=== PATIENT | female | born 1990 | race Caucasian/White ===

== ENCOUNTER 2025-09-15 08:29 | Outpatient (REF) | payer OTHER, SELFPAY ==
--- OUTSIDE RECORDS SUMMARY | 2025-09-09 23:59 | XMS_ITS | Continuity of Care Document ---
Author Organization [facility] Address [address] [place] [address]- Care Team Providers Care Rubber Curer Name Role Phone Agustin Hernandez MD Primary Care Phys[id number] Date(s): 09/02/25 - 09/09/25 [facility] [address] [address]- Encounter Diagnosis Generalized anxiety disorder(Discharge Diagnosis) - 09/02/25 Depression, major, recurrent(Discharge Diagnosis) - 09/02/25 Vitamin D deficiency(Discharge Diagnosis) - 09/02/25 Attending Physician: Agustin Hernandez MD Encounter Type: Office Visit Allergies, Adverse Reactions, Alerts Substance Criticality Severity Reaction Reaction Severity Status Flagyl numbness hands and feet Active Ceclor rash Active Immunizations Given and Recorded Vaccine Date Status Refusal Reason tetanus/diphtheria/pertussis, acel(Tdap) 1 06/08/25 Given tetanus/diphtheria/pertussis, acel(Tdap) 07/18/15 Recorded influenza virus vaccine, inactivated 2 08/28/22 Gi birgit influenza virus vaccine, inactivated 10/01/21 Daniel rded influenza virus vaccine, inactivated 3 01/08/18 Re corded influenza virus vaccine, inactivated 4 09/20/16 Gi birgit SARS-CoV-2 (COVID-19) mRNA-1273 vaccine 12/15/20 R ecorded SARS-CoV-2 (COVID-19) mRNA-1273 vaccine 11/17/20 R ecorded Influenza Virus Vaccine (oldterm) 09/02/19 Recorde d 1Result Comment: [facility]: [id number] 2Result Comment: [facility] [id number] 3Result Comment: [01/09/2018] at [facility]. 4Result Comment: [09/20/2016] seqirus Medications duloxetine 60 mg oral enteric coated capsule 0 Refills, Maintenance, 06/08/25 7:48:00 AM EDT, Partial fill upon patient request if the prescription is for a schedule II opioid drug. Start Date: 06/08/25 Status: Ordered Medication Dispense Status: Completed Total Allowed Fills: 1 Fills Dispensed: 0 hydrOXYzine pamoate 25 mg oral capsule 1 capsule = 25 mg, By Mouth, 3 times a day, PRN as needed for anxiety, # 40 capsule, 0 Refills, Maintenance, 09/08/25 8:48:00 PM EDT, Capsule, [facility]/pharmacy #[id number], Partial fill upon patient request ifthe prescription is for a schedule II opioid drug., 150, cm, 09/08/25 16:55:00 EDT, Height, 52, kg,09/08/25 16:55:00 EDT, Dry Weight Start Date: 09/08/25 Status: Ordered Medication Dispense Status: Completed Quantity: 40.0 Unit: capsule Total Allowed Fills: 1 Fills Dispensed: 0 infliximab 100 mg intravenous powder for injection = 5 mg/kg, IV Infusion, Every 8 Weeks, Weight 51.5 kg. Total dosage is 113 mg. She is being set up for home infusions. Not due until 01/31/25, # 1 kit, 5 Refills, Maintenance, 12/11/24 4:09:00 PM EST, Partial fill upon patient request if the prescription is for a schedule II opioid drug., 150, cm, 10/31/24 9:31:00 EST, Height, 51.5, kg, 12/06/24 8:37:00 EST, Dry Weight Start Date: 12/11/24 Status: Ordered Medication Dispense Status: Completed Quantity: 1.0 Unit: kit Total Allowed Fills: 6 Fills Dispensed: 0 LORazepam 0.5 mg oral tablet 1 tablet = 0.5 mg, By Mouth, 2 times a day, PRN as needed for anxiety, for 7 days, use sparingly for severe anxiety, do not drive after taking this meds, # 14 tablet, 1 Refills, Acute 09/16/25 11:16:00 AM EDT, 09/02/25 11:16:00 AM EDT, Tablet, [facility]/pharmacy #[id number], Partial fill upon patient request if the prescription is for a schedule II opioid drug., 150, cm, 09/02/25 10:16:00 EDT, Height, 53.9, kg, 09/02/25 10:16:00 EDT, Dry Weight Start Date: 09/02/25 Stop Date: 09/16/25 Status: Ordered Medication Dispense Status: Completed Quantity: 14.0 Unit: tablet Total Allowed Fills: 2 Fills Dispensed: 0 lurasidone 60 mg oral tablet 30 each, 0 Refill(s), TAKE 1 TABLET BY MOUTH EVERY DAY AT DINNER FOR 30 DAYS, 0 Refills, 10/31/24 9:37:00 AM EST, Partial fill upon patient request if the prescription is for a schedule II opioid drug. Start Date: 10/31/24 Status: Ordered Medication Dispense Status: Completed Total Allowed Fills: 1 Fills Dispensed: 0 methylphenidate 36 mg oral tablet, extended release 1 tablet = 36 mg, By Mouth, Daily in AM, 0 Refills, Maintenance, 08/28/22 9:10:00 AM EDT, Partial fill upon patient request if the prescription is for a schedule II opioid drug. Start Date: 08/28/22 Status: Ordered Medication Dispense Status: Completed Total Allowed Fills: 1 Fills Dispensed: 0 PEG-3350 with Electrolytes Lemon-Iroquois (Eqv-NuLYTELY) oral powder for reconstitution 240 mL, By Mouth, Every 10 minutes, Stay on clear liquid diet ALL DAY the day BEFORE the procedure.Drink half the dose the evening before, and the other half early in the morning on the day of the procedure., # 4,000 mL, 0 Refills, Maintenance, 06/23/25 9:19:00 AM EDT, REC Powder, [facility]/pharmacy #[id number], Partial fill upon patient request if the prescription is for a schedule II opioid drug., 240 mL ByMouth Every 10 minutes,Instr:Stay on clear liquid diet ALL DAY the day BEFORE the procedure. Drink half the dose the evening before, and the other half early in the morning on the day of the procedure., 150, cm, 06/23/25 9:01:00 EDT, Height, 51.5, kg, 12/06/24 8:37:00 EST, Dry Weight Start Date: 06/23/25 Status: Ordered Medication Dispense Status: Completed Quantity: 4000.0 Unit: mL Total Allowed Fills: 1 Fills Dispensed: 0 Multivitamin Tablet 0 Refills, Maintenance, 06/23/25 9:03:00 AM EDT, Partial fill upon patient request if the prescription is for a schedule II opioid drug. Start Date: 06/23/25 Status: Ordered Medication Dispense Status: Completed Total Allowed Fills: 1 Fills Dispensed: 0 traZODone 100 mg oral tablet 100 mg, 1, tablet, By Mouth, Daily at bedtime, Refills 0, Maintenance, 03/24/23 1:41:00 PM EDT, Partial fill upon patient request if the prescription is for a schedule II opioid drug. Start Date: 03/24/23 Status: Ordered Medication Dispense Status: Completed Total Allowed Fills: 1 Fills Dispensed: 0 Vitamin B12 Methylcobalamin 1 mg oral tablet, disintegrating 2 tablet = 2 mg, Sublingual, Daily, # 60 tablet, 2 Refills, Maintenance, 06/27/24 4:50:00 PM EDT, [facility]/pharmacy #[id number], Partial fill upon patient request if the prescription is for a schedule II opioid drug., 150, cm, 03/24/24 8:48:00 EDT, Height, 45.9, kg, 05/12/23 8:33:00 EDT, Dry Weight Start Date: 06/27/24 Stop Date: 09/25/24 Status: Ordered Medication Dispense Status: Completed Quantity: 60.0 Unit: tablet Total Allowed Fills: 3 Fills Dispensed: 0 Mental Status Mental Status Assessment Assessment Assessment Component Result Effecti ve Date Patient Health Questionnaire 9 item (PHQ-9) total score [Reported] 19 09/02/25 Mental Status Assessment Assessment Assessment Component Result Effecti ve Date Patient Health Questionnaire 2 item (PHQ-2) total score [Reported] 4 09/02/25 Problem List Condition Confirmation Course Effective Dates Status Health St atus Informant Acute pharyngitis Confirmed Active Acute upper respiratory infection Confirmed Active Anemia Confirmed Active ASCUS of cervix with negative high risk HPV Confirmed Active Bipolar disorder Confirmed Active Crohn's disease Confirmed Active Depression Confirmed Active Fatigue Confirmed Active Generalized anxiety disorder Confirmed Active Right kidney stone Confirmed Active Macrocytosis Confirmed Active Depression, major, recurrent Confirmed Active Encounter for preventive health examination Confirmed Active Annual physical exam Confirmed Active Polyuria Confirmed Active Raynaud disease Confirmed Active Genital ulcer, female Confirmed Active Vitamin D deficiency Confirmed Active Diagnosis Diagnosis Type Effective Dates Health Status Clinical Service Informant Generalized anxiety disorder Discharge Diagnosis 09/02/25 Depression, major, recurrent Discharge Diagnosis 09/02/25 Vitamin D deficiency Discharge Diagnosis 09/02/25 Vital Signs Most recent to oldest [Reference Range]: 1 Height 150 cm (09/02/25 10:16 AM) Weight 53.9 kg (09/02/25 10:16 AM) Oxygen Saturation [94-100 %] 98 % (09/02/25 10:16 AM) Pulse Rate [55-90 bpm] 103 bpm *H* (09/02/25 10:16 AM) Body Mass Index [18.5-24.99 kg/m2] 23.96 kg/m2 (09/02/25 10:16 AM) Blood Pressure [90-138/55-84 mm Hg] 146/ 92mm Hg *H* (09/02/25 10:16 AM) Mode of Delivery (Oxygen) Room air (09/02/25 10:16 AM) Blood pressure sites Arm, right (09/02/25 10:16 AM) Dry Weight 53.9 kg (09/02/25 10:16 AM) Note * Claudia Olvera: PERFORM Event Display: Patient Education/Instruction Authored Date: Ambulatory Adult Visit Summary [facility] [address] [address] Name: SAI SMITH : 1990?? Visit: 09/02/2025 10:11?? Ambulatory Visit Instructions ?? Your Care Team Primary Care Provider Agustin Hernandez MD? This Visit Provider Agustin Hernandez MD Vitals Signs Pulse Rate:??103 bpm??High Height: 150 cm Systolic Blood Pressure:??146 mm Hg??High Weight: 53.9 kg Diastolic Blood Pressure:??92 mm Hg??High Body Mass Index: 23.96 kg/m2 Oxygen Saturation: 98 % Body surface area: 1.5 What to do next Scheduled Follow-Up Appointments Sunday2025 9:30 AM EST ?? Type: SN - Endoscopy Where: [facility] Endoscopy & Special Procedures Status: Pending Future Orders HIV Ab-Ag 4th Generation - Routine, Once, 06/08/25 8:14:00 EDT, Single or Recurring Future Order, [facility], Blood?? Comprehensive Metabolic Panel - Routine, Once, 06/08/25 8:20:00 EDT, Single or Recurring Future Order, [facility], Blood?? Lipid Panel - Routine, Once, 06/08/25 8:20:00 EDT, Single or Recurring Future Order, [facility], Blood?? Thyroid Panel - Routine, Once, 06/08/25 8:20:00 EDT, Single or Recurring Future Order, [facility], Blood?? Vitamin D 25 Hydroxy Level - Routine, Once, 06/08/25 8:20:00 EDT, Single or Recurring Future Order,[facility], Blood?? CBC w/ Differential - Routine, Once, 06/08/25 8:20:00 EDT, Single or Recurring Future Order, [facility], Blood?? Vitamin B12 Level (B12 Vitamin Level) - Routine, Once, 06/08/25 8:21:00 EDT, Single or Recurring Future Order, [facility], Blood?? Folate Level - Routine, Once, 06/08/25 8:21:00 EDT, Single or Recurring Future Order, [facility], Blood?? Iron + Iron Binding Capacity - Routine, Once, 06/08/25 8:21:00 EDT, Single or Recurring Future Order, [facility], Blood?? Ferritin - Routine, Once, 06/08/25 8:21:00 EDT, Single or Recurring Future Order, [facility], Blood?? CBC - Routine, Once, 06/10/25 19:35:00 EDT, Future Order, [facility], Blood?? Comprehensive Metabolic Panel - Routine, Once, 06/10/25 19:35:00 EDT, Future Order, [facility], Blood?? Vitamin D 25 Hydroxy Level - Routine, Once, 06/10/25 19:35:00 EDT, Future Order, [facility], Blood?? Quantiferon TB Gold Plus - Routine, Once, 06/10/25 19:35:00 EDT, Future Order, [facility], Blood?? Ferritin - Routine, Once, 06/10/25 19:35:00 EDT, Future Order, [facility], Blood?? C Reactive Protein (CRP) - Routine, Once, 06/10/25 19:35:00 EDT, Future Order, [facility], Blood?? Calprotectin Fecal - Routine, Once, 06/10/25 19:35:00 EDT, [facility], Stool?? Quantiferon TB Gold Plus - Routine, Once, 06/23/25 9:15:00 EDT, Future Order, [facility], Blood?? Infliximab Conc and Antibody - Routine, Once, 06/23/25 9:20:00 EDT, Future Order, [facility], Blood?? Calprotectin Fecal - Routine, Once, 06/23/25 9:23:00 EDT, [facility], Stool?? Medications The list below reflects the information in our records and provided by you today along with any changes made during this visit. Please continue your medications until treatment is completed or stopped by your provider. If this is different from the information you have or there are other questions,please contact the prescribing provider. What How Much When Instructions Unchanged Duloxetine (duloxetine 60 mg oral enteric coated capsule) Unchanged Infliximab (infliximab 100 mg intravenous powder for injection) 5 Milligrams/Kilogram Intravenous Infusion Every 8 Weeks Special Instructions: Weight 51.5 kg. Total dosage is 113 mg. She is being set up for home infusions. Not due until Ordering Physician: Jace Rios MD ?? Unchanged lurasidone (lurasidone 60 mg oral tablet) Special Instructions: 30 each, 0 Refill(s), TAKE 1 TABLET BY MOUTH EVERY DAY AT DINNER FOR 30 DAYS ?? Unchanged methylcobalamin (Vitamin B12 Methylcobalamin 1 mg oral tablet, disintegrating) 2 tab(s) Sublingual Daily Duration: 30 Days Ordering Physician: Jace Riso MD Unchanged Methylphenidate (methylphenidate 36 mg oral tablet, extended release) 1 tab(s) Oral Daily in the morning Unchanged Multivitamin, ( Multivitamin Tablet) Unchanged PEG Electrolyte Solution (PEG-3350 with Electrolytes Lemon-Iroquois (Eqv- NuLYTELY) oral powder for reconstitution) 240 Milliliter Oral Every 10 minutes Special Instructions: Stay on clear liquid diet ALL DAY the day BEFORE the procedure. Drink half the dose the evening before, and the other half early in the morning on the day of the procedure. Ordering Physician: Jace Rios MD ?? Unchanged Trazodone (traZODone 100 mg oral tablet) 1 tab(s) Oral Daily at Bedtime Medications and Immunizations Administered Medications Given During Visit No medications given during this visit.?? Allergies (NKA means No Known Allergies) Ceclor??rash Flagyl??numbness hands and feet Common Emergency Awareness Tips IS IT A STROKE? Act FAST and Check for these signs: FACE Does the face look uneven? ARM Does one arm drift down? SPEECH Does their speech sound strange? TIME Call at any sign of stroke ?? Heart Attack Signs Chest discomfort: Most heart attacks involve discomfort in the center of the chest and lasts more than a few minutes, or goes away and comes back. It can feel like uncomfortable pressure, squeezing, fullness or pain. Discomfort in upper body: Symptoms can include pain or discomfort in one or both arms, back, neck, jaw or stomach. Shortness of breath: With or without discomfort. Other signs: Breaking out in a cold sweat, nausea, or lightheaded. Remember, MINUTES DO MATTER. If you experience any of these heart attack warning signs, call to get immediate medical attention! ?? Smoking can increase your chances of developing chronic health problems and can cause harmful effects to other family members in your house. If you smoke, you are strongly encouraged to quit. Please call [facility] Link at [phone] or [phone] ([phone]) or log in to [email or web address] for referrals to smoking cessation programs. ?? The National Suicide Prevention Hotline is available 11/06 if you or someone you know needs to find a reason to keep living. By calling 3-120-893-talk (3950) you'll be connected to a skilled, trained counselor at a crisis center in your area. [facility] Health Portal You can view and manage your care through the patient portal or by using a health care dex of your choosing. [employer] is a website that allows you to securely view your medical information including your hospital discharge summary, office visit summaries, medications and follow-up visits. You can also request appointments, renew medications, and request access to your medical information using a health care dex of your choosing, or just ask a question. You can enroll at [email or web address] or register during your next office visit. [facility], in keeping with [facility] guidance, no longer requires face masks for staff, patientsor visitors in most situations. Similiar to time spent indoors at other locations, there is the chance that you were exposed to repiratory viruses during your time with us (such as flu or COVID-19). If you develop symptoms concerning for a viral respiratory infection, please seek testing (and treatment if indicated) from your medical provider or home test kit. ?? Disclaimer: The information provided is of a general nature and is intended to be used in conjunction with the recommendations and advice of your health care practitioner. Every effort has been made to ensure that the information provided is accurate and complete at the time it is provided to you however, as your needs change, or, as new information becomes available, different or additional instructions may be required. ?? If you have questions, please consult with your primary care provider or pharmacist, as appropriate. This information is not intended to serve as substitution for assessment and evaluation by a qualified health care provider. If you do not have a primary care provider, you may find a [facility] provider by calling [facility] Link at [phone]. Patient Care team information Care Team Personnel Name: Agustin Hernandez MD Position: [facility] Physician - Primary Care Member Role: PCP Address: [address] [place] [address]- Telecom: Name: Paola Martins RN Position: [facility] RN Member Role: Primary Care Nurse Name: Nicolette Marks MA Position: [facility] Staff Member Role: Primary Care Nurse Name: Vilma Wang MA Position: [facility] Staff Member Role: Primary Care Nurse Care Team Related Persons Name: RACHTHERESA DOTY Name: LUIS THERESA Name: GREGORIO GOMEZ Insurance Providers Guarantor name: SAI SMITH [facility] Plan Information #: 1 Payer: [facility] PPO Payer Identifier: MICHELLE Member Number: [id number] Group Number: [id number] Subscriber Identifier: NA Relationship to Subscriber: self Coverage Type: NA Coverage Verification Date: NA Telecom: Address:
--- NOTE | 2025-09-15 08:35 | ECG_ITS ---
Test Reason : CHECK QT Blood Pressure : */* mmHG Vent. Rate : 77 BPM Atrial Rate : 77 BPM P-R Int : 116 ms QRS Dur : 92 ms QT Int : 374 ms P-R-T Axes : 51 41 47 degrees QTcB Int : 423 ms Normal sinus rhythm Normal ECG No previous ECGs available Referred By: Cherelle Davila Electronically Signed By: IBIS CORDERO
[2025-09-15 08:53] LABS: MANUAL DIFF FLAG NO
[2025-09-15 09:14] LABS: Hematocrit 42.5 % (37.0-47.0); Hemoglobin 14.7 g/dl (12.0-16.0); Imm Gran Abs Auto 0.02 X10*3/uL (0.00-0.03); Imm Gran Pct Auto 0.3 % (0.0-0.4); Lymphocytes Absolute Auto 1.1 X10*3/uL (1.2-4.9); Mean Corpuscular HGB Conc 34.6 g/dl (31.0-35.0); Mean Corpuscular Hemoglobin 32.3 pg (27.0-33.0); Mean Corpuscular Volume 93.4 fL (80.0-98.0); NRBC Abs Auto 0.000 X10*3/uL (0.0-0.012); NRBC Pct Auto 0.0 /100WBC (0.0-0.2); Platelet Count 296 X10*3/uL (160-400); Red Blood Count 4.55 X10*6/uL (4.20-5.50); White Blood Count 6.2 X10*3/uL (4.8-10.8)
--- OUTSIDE RECORDS SUMMARY | 2025-09-15 09:14 | XMS_ITS | Clinical Summary ---
Author Organization [employer] [facility] lin Address [address] [place] [address] Care Team Providers Care Last Code Striper Name Role Phone Unavailable Primary Care Provider Unavailabl e Allergies Active Allergy Reactions Criticality Noted Date Comments Cefaclor Rash Low 05/23/2023 Metronidazole 05/23/2023 Medications traZODone (DESYREL) 100 MG tablet Take 100 mg by mouth daily 03/24/2023 Active methylphenidate HCl (CONCERTA) 36 MG CR tablet Take 36 mg by mouth daily 08/28/2022 Active methylphenidate HCl (RITALIN) 10 MG tablet Take 36 mg by mouth. 08/28/2022 Active HYDROcodone-acet aminophen (XODOL) 5-300 mg tablet Take 1 tablet by mouth. 10/04/2023 Active Social History Tobacco Use Types Packs/Day Years Used Date Smoking Tobacco: Never Assessed Comments No Sex and Gender Information Value Date Recorded Sex Assigned at Not on file Legal Sex Female 9:38 AM EDT Gender Identity Not on file Sexual Orientation Not on file Last Filed Vital Signs Vital Sign Reading Time Taken Comments Blood Pressure 105/70 10/26/2023 11:20 AM EST Pulse 74 10/26/2023 11:20 AM EST Temperature 36.7 C (98 F) 10/26/2023 11:20 AM EST Respiratory Rate 16 10/26/2023 11:20 AM EST Oxygen Saturation - - Inhaled Oxygen Concentration - - Weight 49 kg (108 lb) 10/26/2023 9:23 AM EST Height 149.9 cm (4' 11 ) 06/18/2023 1:23 PM PDT Body Mass Index 21.81 06/18/2023 1:23 PM PDT Plan of Treatment Health Maintenance Due Date Last Done Comments Depression: Screening Annual ly using PHQ-2/9 in Adults 18 yrs or above (or HM Modifier)([facility]) 01/17/2006 Hepatitis C Virus Infection in Adolescents and Adults: Screening (or Modifier) ([facility]) 01/17/2006 SDOH Screening Reminder: Annually for all adults ([facility]) 01/17/2006 Tobacco Smoking Cessation: i n Adults excluding Women: Behavioral and Pharmacotherapy Interventions ([facility]) 01/17/2006 Cervical Cancer Screenin-65 yrs of age (or Modifier) 01/17/2009 Cervical Cancer Screening: P ap every 3 yrs pts age 21-65 01/17/2009 Cervical Cancer: Pap Screeni ng with Modifier timing ([facility]) 01/17/2009 Cervical Cancer: hrHPV alone or with cotesting Pap for Pts 30-65yrs screening every 5yrs ([facility]) 01/17/2009 Flu Vaccination: Yearly for ages 18mos through 64 years (or Modifier)([facility]) 06/19/2025 DTaP/Tdap/Td Vaccines ([facility]) (2 - Td or Tdap) 07/18/2025 07/18/2015 COVID-19 Vaccine Screening: Initial Series and Booster Status ([facility]) ( - 2024- season) 2025 12/15/2020, 11/17/2020 Zoster/Shingles Vaccine Seri es Screening: Adults aged 18+ yrs (or HM Modifiers)([facility]) (1 of 2) 01/17/2038 Pneumococcal Vaccination Screening: Pts 0-19 & 19-49 yrs of age ([facility]) Aged Out No longer eligible based on patient's age to complete this topic Medical Devices Not on file Insurance [employer] [place] [facility] [facility] "
--- OUTSIDE RECORDS SUMMARY | 2025-09-15 09:14 | XMS_ITS ---
Author Name [facility] Organization Unknown Care Team Organization Name Specialty Phone Email Start Date End Da te [employer] 03/02/2023 0 07/07/2024
[2025-09-15 09:47] LABS: Parathyroid Hormone Intact 80.6 pg/mL (8.7-77.1)
[2025-09-15 09:52] LABS: Alanine Aminotransferase 26 U/L (0-31); Albumin Level 4.6 g/dL (3.5-5.0); Alkaline Phosphatase 76 U/L (39-117); Anion Gap 13 (12-20); Aspartate Amino Transferase 39 U/L (5-31); Blood Urea Nitrogen 8 mg/dL (9-16); Calcium 9.0 mg/dL (8.4-10.2); Carbon Dioxide 26 mmol/L (22-29); Chloride 102 mmol/L (96-108); Cholesterol 211 mg/dL (<200); Estimated Glomerular Filt Rate > 60; Iron 189 mcg/dL (30-160); Magnesium 1.8 mg/dL (1.6-2.6); Percent Iron Saturation 60 % (15-50); Potassium 3.3 mmol/L (3.3-5.1); Sodium 138 mmol/L (135-145); Total Iron Binding Capacity 313 mcg/dL (228-428); Total Protein 7.7 g/dL (6.5-8.0); Unsaturated Iron Binding 124 ug/dL
[2025-09-15 10:04] LABS: Gamma Glutamyl Transpeptidase 41 U/L (7-33)
[2025-09-15 10:08] LABS: Free T4 (Free Thyroxine) 0.92 ng/dL (0.71-1.85); Thyroid Stimulating Hormone 1.47 uIU/mL (0.32-4.0)
[2025-09-15 10:16] LABS: Folate 7.7 ng/mL (> or = 4.0); Vitamin B12 190 pg/mL (200-900)
[2025-09-19 12:49] LABS: Triiodothyronine T3 Reverse 9 ng/dL (8-25)
[2025-09-23 12:18] LABS: Anti Nuclear Antibody Pattern Nuclear, Homogeneous; Anti Nuclear Antibody Screen POSITIVE (NEGATIVE); Anti Nuclear Antibody Titer 1:640 titer
== END 2025-09-15 08:30 | disposition home or self-care (01) ==
LOC: HO.LAB 08:29
PROVIDERS: PCP Internal Medicine; Visit Provider Psychiatry & Neurology Psychiatry
DX: F41.1 Generalized anxiety disorder (principal); F39 Unspecified mood [affective] disorder; Z13.0 Encounter for screening for diseases of the blood and blood-forming organs and certain disorders involving the immune mechanism; Z13.1 Encounter for screening for diabetes mellitus
CPT/HCPCS: 36415; 80053; 80307; 82306; 82465; 82550; 82607; 82746; 82977; 83036; 83090; 83540; 83735; 83970; 84100; 84425; 84439; 84443; 84480; 84481; 84482; 85025; 85652; 86038; 86039; 93005

== ENCOUNTER → 2025-09-15 08:35 | Outpatient (BNV) | payer OTHER, SELFPAY | PROVIDERS: PCP Internal Medicine; Visit Provider Internal Medicine | DX: Z13.6 Encounter for screening for cardiovascular disorders (principal) | CPT/HCPCS: 93010 ==

== ENCOUNTER → 2025-09-17 13:15 | Outpatient (BNV) | payer OTHER, SELFPAY | PROVIDERS: Visit Provider Psychiatry & Neurology Psychiatry | DX: F10.10 Alcohol abuse, uncomplicated (principal); F31.9 Bipolar disorder, unspecified | CPT/HCPCS: 99214; 99499 ==

== ENCOUNTER 2025-09-28 10:45 | Outpatient (RCR) | payer OTHER, SELFPAY ==
[2025-09-14 11:59] VITALS: BMI 23.2
[2025-09-14 12:00] VITALS: TEMP 36.8
--- NOTE | 2025-09-14 15:20 | PC.ADMIT ---
Patient is a 35 year old female who was referred to [facility] by [facility] secondary to severe anxiety and depression sxs. Patient reports work stress, financial stress and stress in her marriage. Patient reports she has been drinking wine three days a week for the past three months to cope. Patient also stated she was using marijuana daily vaping throughout the day however has stopped using last Sunday. Patient denied history of withdrawal from alcohol, denied current withdrawal symptoms. She denies drinking alcohol during the day. Reports she drinks three days a week at nighttime. Patient reports the last time she drank alcohol was Sunday09/13/25. Stated she drinks a 1/2 bottle of wine, standard size bottle. Patient stated she has been drinking like this for the past three months. Patient denied history of blacking out from alcohol. Patient presents with whole body trembling. She stated this is from anxiety and reports she has presented like this in the past when feeling severely anxious. Trembling appeared to decrease later in the assessment however still present. No visible sweating seen. Denied nausea or vomiting. No headache, No VH, No AH. Oriented x4. No agitation. Presents with moderate anxiety. VS 120/78 P 88. Patient reports she was not able to sleep last night d/t feeling anxious about coming to [facility] this morning. Reviewed above mentioned information with Dr. Davila. Plan to put patient on Ativan taper as a precaution. Patient taking a leave of absence from work to work on her mental health. Patient is alert and oriented x4. She is calm and cooperative. She presents with depressed mood and very anxious affect. She denied SI, no HI. She was given a copy of her safety plan if needed. Patient also given education about the dangers of alcohol withdrawal including seizures. Patient denied she is drinking more than she reports. Patient's medications updated with patient and patient's pharmacy. She reports taking medications as prescribed.
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
[2025-09-15 09:44] VITALS: BP 122/82; PULSE 88
--- NOTE | 2025-09-15 09:44 | PC.NURSE ---
Patient stated she is feeling much better today. Stated she feels less anxious. Reports she feel more rested today and sleep was better last night. Took prescription Ativan as prescribed. Reports no alcohol yesterday. Appears less tremulous today. VSS BP 122/82 P 88. No diaphoresis, no agitation, no AH or VH. No c/o H/A. No Vomiting. Patient is alert and oriented x4. She is calm and cooperative.
[2025-09-16 12:05] VITALS: BP 110/72; PULSE 88
--- NOTE | 2025-09-17 13:01 | HO.PHP ---
Clients case was open and reviewed in groups.
--- NOTE | 2025-09-17 14:32 | PM.EVENT ---
Event Note Date of Service: 09/17/25 Event Note: Checked in with patient who is feeling calmer who was home. Generally feels better at home, leaving house is difficult. Severe social anxiety in public or groups of people. Lorazepam has been helpful with shakiness theses past few days. She is aware of concerns for alcohol withdrawal, but says she has not drank in interim, last drink was last week. SHe understands she was put on a 7 day lorazepam taper (given patient's initial presentation on admission Sunday, BZD started in case pt was minimizing use. (Pt denies any h/o withdrawal sx and had reported a long hx of tremulousness when anxiety is high). BAL was neg on . Patient reports taking lorazepam as prescribed. Continues to complain of high anxiety (generalized, social anxiety, panic symptoms) continue to be high. She is agreeable to starting on naltrexone for cravings and gabapentin to target anxiety, and as trtmt in AUD. will start naltrexone 50 mg qhs start gabapentin 300 mg this evening (6pm) if not too sedating she may continue BID-TID as tolerated on 7-day lorazepam taper for anxiety, ?w/d sx Time Spent With Patient Time: Total time managing care of this patient today ____ minutes.
[2025-09-21 09:32] VITALS: BP 160/100; PULSE 100
--- NOTE | 2025-09-21 09:33 | PC.NURSE ---
Addendum entered by Romana Luis RN 09/21/25 09:51: Patient is aware that alcohol withdrawal can be dangerous and that she could have a seizure if she is withdrawing from alcohol. It was recommended that she go to the ER to f/u however she declined to do this at this time. Dr. Jordana Molina is aware. Original Note: Patient tearful. Stated she wants to be honest and reports she drank 2 glasses of wine last night. Stated the last time she drank alcohol prior to that was one week ago. She stated, Do not tell my . She repeated over and over that she is sorry. Patient tremulous, stated she did not sleep at all last night. Patient with mild diaphoresis. Denied headache. No nausea, no vomiting, no agitation, no AH, no VH. Patient with moderate to severe anxiety. BP 160/100 P 100. Reviewed aforementioned information to Dr. Molina. Dr. Molina is meeting with patient currently.
--- NOTE | 2025-09-21 09:46 | P.PNPSP_ITS ---
Subjective Subjective Date of Service: 09/21/25 Reason For Visit: anxiety,depression Medical Problems Affecting Mental Status: Yes (elevated pulse and bp ? of alcohol withdrawal) Interim History: 35 yo presents with acutely upset drank last pm and elevated bp/pulse this am also tremulous- but upset- refused referral to detox or to ER for further assessment and treatment. - AFter further group and re check bp bp and pulse came down Pt denies si - Finds php here helpful and wants to stay in this program rather than go to one that is totally substance focused. Pt very confused about medication changes made earlier in week - Discussed we would review and refine today dc clonidine (? rebound htn this am contributing to high bp) and dc lorazepam (pt drank last pm anyway) Medication Compliance: No (confused by med changes and being on so many) Side effects from medications: No (?) Attending Groups: Yes Review of Systems Acute medical concerns: Yes tremor, inc bp - multifactorial Mental Status Exam Mental Status Exam Patient Appearance: Disheveled Patient Orientation: Person, Place, Time and Situation Level of Consciousness: Awake Patient Behavior: Resistive to Care, Good Eye Contact and Crying Mood Description: Anxious Affect Description: Apprehensive (fearful of someone telling her about her drinking and his her due to this) Patient Cognition Impaired: No Ability to Follow Directions: Fair Speech Pattern: Poor Articulation Hallucinations: None Delusions: Not Present Thought Process: Intact Thought Content: positive for Perseveration (on fear of finding out she drank) Depressive Symptoms: Increased Anxiety Judgement: Fair Diagnostics Vital Signs (24Hr): Vital Signs - 24 hr 09/21/25 09:32 Pulse Rate 100 Blood Pressure 160/100 H BMI result Body Mass Index 23.2 Assessment & Plan Assessment & Plan (1) Alcohol abuse: Status: Acute Code(s): F10.10 - Alcohol abuse, uncomplicated Assessment and Plan: warned of risk of alcohol withdrawal and seizure possibility if goes into withdrawal stop lorazepam we are not doing outpatient detox- if she needs that she needs to go to detox or er (2) Bipolar 1 disorder, depressed: Status: Acute Code(s): F31.9 - Bipolar disorder, unspecified Assessment and Plan: continue lautda; and new lamotrigine trial - Plan continue php, least restrictive treatment pt will agree to Continue gabapentin stop lorazepam trazodone for sleep ok- 100-200mg at night STart naltrexone to dec amount likely to drink if relapse Patient educated on: medication risk/benefits, substance abuse and medical condition Informed Consent: understands Reason for contiued partial hosp. stay Substantial Risk for: rapid decompensation Certification I certify that partial hospital treatment is medically necessary due to the symptoms and problems resulting from the patient's mental illness and the failure to treat the patient at the partial hospital level of care would likely result in the patient requiring inpatient psychiatric care which could not be prevented at a less intensive level of care. Total time managing care of this patient today ____ minutes. Discharge Plan Discharge Attending provider: Cherelle Davila Additional Instructions: stop lorazepam 09/21/25 Medications: New nicotine (polacrilex) [Nicorette] 2 mg gum 2 mg buccal Q1-2H PRN (Reason: nicotine cravings) Qty: 50 0RF gabapentin 300 mg capsule 300 mg PO TID Qty: 30 0RF naltrexone 50 mg tablet 50 mg PO BEDTIME Qty: 30 0RF Continued lamotrigine 25 mg tablet 25 mg PO DAILY infliximab 100 mg Recon Soln See Rx Instructions .ROUTE .COMPLEX Rx Instructions: Per patient. Stated she takes every 8 weeks for Crohn's disease. methylphenidate HCl 36 mg Tablet Extended Release 24hr 36 mg PO DAILY hydroxyzine pamoate 25 mg capsule 25 mg PO TID PRN (Reason: Anxiety) duloxetine 60 mg capsule,delayed release(DR/EC) 60 mg PO DAILY 90 Days Qty: 90 0RF lurasidone 80 mg tablet 80 mg PO BEDTIME 90 Days Qty: 90 0RF Rx Instructions: TAKE 1 TABLET BY MOUTH EVERY NIGHT TAKE WITH AT LEAST 350 CALORIES Changed trazodone 100 mg tablet 100 mg PO .bedtime mr x1 PRN (Reason: insomnia) 14 Days Qty: 28 0RF Discontinued zolpidem 5 mg tablet 5 mg PO BEDTIME PRN (Reason: insomnia) Rx Instructions: TAKE 1 TABLET BY MOUTH EVERY DAY AT BEDTIME NEEDED FOR INSOMNIA (SWALLOW WHOLE) No Action M- Plus 27 mg iron- 1 mg tablet 1 tab PO DAILY Stand Alone Forms: Patient Portal Discharge page Print Language: Kazakh
[2025-09-21 10:36] VITALS: BP 140/90; PULSE 80
--- NOTE | 2025-09-21 10:36 | PC.NURSE ---
Patient appears less tremoulous, less anxious. Reports she feels better after talking to the group. BP 140/[address] Jordana Molina is aware.
--- NOTE | 2025-09-23 07:25 | HO.PHP ---
PHP admin, Kristin, informed the team that Callie will not be in attendance to program today due to feeling unwell. There were no safety concerns presented and Callie will be in attendance to program tomorrow.
--- NOTE | 2025-09-28 22:46 | P.PNPSP_ITS ---
Subjective Subjective Date of Service: 09/28/25 Reason For Visit: anxiety,depression Interim History: Patient seen for follow-up, anticipating discharge at the end of program today.? Reports program has been helpful. Still experiencing variable months of anxiety, namely anxious thoughts. Has been more focused on recovery. Last drink over a week ago. Tolerating gabapentin, has slowly been titrating dose to help with anxiety denies any sedation has been taking naltrexone. Cravings manageable. Dose of trazodone increased to 150 mg to target breakthru insomnia. Lamotrigine started no issues, she was given schedule for titration as tolerated and will follow up for outpatient providers. Appointment with psychiatrist tomorrow. Appointment with therapist on Sunday Reports no acute issues or concerns. Medication compliant, medications well- tolerated. Denies any adverse effects.? Mood is anxious, but stable.? Denies any hopelessness or SI. Denies thoughts of harming self or others at this time. Denies any aggressive ideation or HI. Denies any paranoia or AH or VH. Sleep, appetite, energy stable. Medication Compliance: Yes Side effects from medications: No Attending Groups: Yes Review of Systems Acute medical concerns: No Mental Status Exam Mental Status Exam Narrative: Alert, oriented, in no acute distress. Calm, cooperative. Variable bilateral tremor improves over encoutner. Mood stable, affect appropriate. Speech normal. Thought process linear, coherent, more goal-directed. Thought content related to stressors, future-oriented, denies any helplessness, hopelessness or SI.? No aggressive ideation or HI. No paranoia or delusional content elicited. No evidence of psychosis. Insight and judgment fair-good. Diagnostics Vital Signs (24Hr): BMI result Body Mass Index 23.2 Assessment & Plan Assessment & Plan (1) Alcohol abuse: Status: Acute Code(s): F10.10 - Alcohol abuse, uncomplicated (2) Bipolar 1 disorder, depressed: Status: Acute Code(s): F31.9 - Bipolar disorder, unspecified (3) Other specified anxiety disorders: Status: Acute Code(s): F41.8 - Other specified anxiety disorders Plan [facility]charge from [facility] Continue regular medications? Refills sent to pharmacy Will defer further medication management to outpatient provider *Safety plan reviewed *Discharge diagnoses, treatment course, discharge plan have been reviewed with patient (including medication regime, medication management, potential side effects) as well as treatment rationale were also revisited *Discharge paperwork signed and given to patient, copy sent for scanning to chart Patient educated on: diagnosis, medication risk/benefits and substance abuse Informed Consent: understands Reason for contiued partial hosp. stay Substantial Risk for: stable for discharge Certification I certify that partial hospital treatment is medically necessary due to the symptoms and problems resulting from the patient's mental illness and the failure to treat the patient at the partial hospital level of care would likely result in the patient requiring inpatient psychiatric care which could not be prevented at a less intensive level of care. Total time managing care of this patient today _30___ minutes. Discharge Plan Discharge Attending provider: Cherelle Davila Additional Instructions: stop lorazepam 09/21/25 Medications: New nicotine (polacrilex) [Nicorette] 2 mg gum 2 mg buccal Q1-2H PRN (Reason: nicotine cravings) Qty: 50 0RF gabapentin 300 mg capsule 300 mg PO TID Qty: 30 0RF naltrexone 50 mg tablet 50 mg PO BEDTIME Qty: 30 0RF lamotrigine 25 mg tablet See Rx Instructions .ROUTE .COMPLEX Qty: 90 0RF Rx Instructions: take 2 tablets po daily for 2 weeks, then increase to 3 tablets po daily for 2 weeks lamotrigine 100 mg tablet 100 mg PO DAILY Qty: 90 0RF Rx Instructions: to be started after completing 2 weeks of 75 mg po daily propranolol 10 mg tablet 10 mg PO BID Qty: 20 0RF thiamine HCl (vitamin B1) 100 mg tablet 100 mg PO DAILY Qty: 30 2RF cyanocobalamin (vitamin B-12) 1,000 mcg capsule 1,000 mcg PO DAILY Qty: 30 2RF gabapentin 600 mg tablet 600 mg PO TID Qty: 45 0RF Continued lamotrigine 25 mg tablet 25 mg PO DAILY infliximab 100 mg Recon Soln See Rx Instructions .ROUTE .COMPLEX Rx Instructions: Per patient. Stated she takes every 8 weeks for Crohn's disease. methylphenidate HCl 36 mg Tablet Extended Release 24hr 36 mg PO DAILY lurasidone 80 mg tablet 80 mg PO BEDTIME 90 Days Qty: 90 0RF Rx Instructions: TAKE 1 TABLET BY MOUTH EVERY NIGHT TAKE WITH AT LEAST 350 CALORIES duloxetine 60 mg capsule,delayed release(DR/EC) 60 mg PO DAILY 90 Days Qty: 90 0RF Changed hydroxyzine pamoate 25 mg capsule 25 mg PO QID PRN (Reason: Anxiety, sleep) Qty: 120 0RF trazodone 100 mg tablet 150 - 200 mg PO BEDTIME PRN (Reason: insomnia) 30 Days Qty: 60 0RF Discontinued zolpidem 5 mg tablet 5 mg PO BEDTIME PRN (Reason: insomnia) Rx Instructions: TAKE 1 TABLET BY MOUTH EVERY DAY AT BEDTIME NEEDED FOR INSOMNIA (SWALLOW WHOLE) M-Christa Plus 27 mg iron- 1 mg tablet 1 tab PO DAILY Stand Alone Forms: Patient Portal Discharge page Patient Education: Bipolar Disorder (ED), Bipolar Disorder (DC), Anxiety (ED), Vitamin B12 Deficiency (ED), Alcohol Use Disorder (DC) Print Language: Chinese
== END 2025-09-28 23:59 | disposition home or self-care (01) ==
LOC: HO.PHPA 10:45
PROVIDERS: Visit Provider Psychiatry & Neurology Psychiatry
DX: F10.10 Alcohol abuse, uncomplicated (principal); F31.9 Bipolar disorder, unspecified; F41.8 Other specified anxiety disorders; Z79.899 Other long term (current) drug therapy
CPT/HCPCS: 90791; 90853